=== PATIENT | female | born 1985 | race Caucasian/White ===

== ENCOUNTER 2016-12-27 10:26 | Emergency (ER) | payer OTHER ==
--- NOTE | 2016-12-27 10:40 | ED ---
Arrhythmia/Palpitations HPI - General Chief Complaint: Arrhythmia/Palpitations Stated Complaint: heart palpatations Source: patient Mode of arrival: ambulatory Limitations: no limitations - History of Present Illness Initial Comments: 31-year-old female with history of intermittent palpitations and Gettleman syndrome presents with palpitations beginning today she is presently 24 weeks she is 2 para 1 AB 0. She takes 8 potassiums per day. As well as magnesium supplementation. She has no social chest pain shortness breath dizziness she had a problems during her last which she cared 29 weeks with a live . She states the potassium requirement seemed to go up during her last . She has no headaches dizziness fever chills nausea vomiting. She's had some mild the uterine cramps over the last 2 weeks of for which she spoke to Dr. Jimenez. - Related Data Home Medications Medication Instructions Recorded Confirmed Vit No.124/Iron/FA 1 each PO DAILY 03/02/15 12/27/16 [ Vitamin Tablet] Magnesium Oxide [Mag-Ox] 1,600 meq PO BID 11/14/15 12/27/16 Potassium Chloride [Klor-Con 20] 80 meq PO BID 11/14/15 12/27/16 Allergies Allergy/AdvReac Type Severity Reaction Status Date / Time diphenhydramine HCl Allergy Throat Verified 10/17/16 19:11 [From Benadryl] Closes Review of Systems ROS Statement: Those systems with pertinent positive or pertinent negative responses have been documented in the HPI. ROS Other: All systems not noted in ROS Statement are negative. Constitutional: Denies: fever, chills ENT: Denies: ear pain Respiratory: Denies: cough Cardiovascular: Reports: palpitations. Denies: chest pain, dyspnea on exertion , edema Gastrointestinal: Denies: abdominal pain, nausea, vomiting Genitourinary: Denies: urgency, dysuria, frequency, hematuria Skin: Denies: rash Neurological: Denies: headache, weakness Psychiatric: Denies: anxiety, depression Hematological/Lymphatic: Denies: easy bleeding, easy bruising 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. OB history: This is her first and she has had care with me as well as being followed by M. She has had 2 courses of celestone. History of Any Multi-Drug Resistant Organisms: None Reported Past Surgical History: Appendectomy, Orthopedic Surgery, Tonsillectomy Additional Past Surgical History / Comment(s): Liposuction 2015, [place] teeth Past Anesthesia/Blood Transfusion Reactions: No Reported Reaction Past Psychological History: Anxiety, Depression, PTSD Smoking Status: Current every day smoker Past Alcohol Use History: None Reported Past Drug Use History: None Reported - Past Family History Mother Family Medical History: Fibromyalgia Additional Family Medical History / Comment(s): Fibromyalgia dioagnosed in 2006 General Exam Limitations: no limitations Head exam: Present: atraumatic Eye exam: Present: PERRL, EOMI ENT exam: Present: normal oropharynx, mucous membranes moist Respiratory exam: Present: normal lung sounds bilaterally Cardiovascular Exam: Present: regular rate, tachycardia, normal heart sounds GI/Abdominal exam: Present: soft, tenderness Neurological exam: Present: alert, CN II-XII intact Psychiatric exam: Present: normal affect, normal mood Skin exam: Present: warm, dry Course Vital Signs 12/27/16 10:28 Temperature 97 F L Pulse Rate 111 H Respiratory 18 Rate Blood Pressure 119/69 O2 Sat by Pulse 99 Oximetry Medical Decision Making - Medical Decision Making Patient has sinus tachycardia about 1 or 3significant arrhythmia, her potassium is 3.3 her magnesium is 1.2 she prefers not to have IV we'll give her an extra dose of her potassium magnesium no have her increase her potassium 80 mEq 3 times a day instead of twice a day and increase her magnesium to 800 mg extra third time a day. - Lab Data Result diagrams: 12/27/16 11:42 12/27/16 11:42 Lab Results 12/27/16 12/27/16 12/27/16 Range/Units 11:42 11:42 11:42 WBC 14.7 H (3.8-10.6) k/uL RBC 4.02 (3.80-5.40) m/uL Hgb 13.9 (11.4-16.0) gm/dL Hct 38.1 (34.0-46.0) % MCV 94.6 (80.0-100.0) fL MCH 34.6 (25.0-35.0) pg MCHC 36.6 (31.0-37.0) g/dL RDW 13.7 (11.5-15.5) % Plt Count 288 (150-450) k/uL Neutrophils % 76 % Lymphocytes % 16 % Monocytes % 4 % Eosinophils % 3 % Basophils % 1 % Neutrophils # 11.1 H (1.3-7.7) k/uL Lymphocytes # 2.4 (1.0-4.8) k/uL Monocytes # 0.6 (0-1.0) k/uL Eosinophils # 0.4 (0-0.7) k/uL Basophils # 0.1 (0-0.2) k/uL Sodium 140 (137-145) mmol/L Potassium 3.3 L (3.5-5.1) mmol/L Chloride 101 (98-107) mmol/L Carbon Dioxide 28 (22-30) mmol/L Anion Gap 11 mmol/L BUN 7 (7-17) mg/dL Creatinine 0.54 (0.52-1.04) mg/dL Est GFR (MDRD) Af Amer >60 (>60 ml/min/1.73 sqM) Est GFR (MDRD) Non-Af >60 (>60 ml/min/1.73 sqM) Glucose 100 H (74-99) mg/dL Calcium 9.6 (8.4-10.2) mg/dL Magnesium 1.2 L (1.6-2.3) mg/dL Total Bilirubin 0.4 (0.2-1.3) mg/dL AST 18 (14-36) U/L ALT 24 (9-52) U/L Alkaline Phosphatase 64 (38-126) U/L Total Creatine Kinase 37 (30-135) U/L Total Protein 7.4 (6.3-8.2) g/dL Albumin 4.0 (3.5-5.0) g/dL Urine Color Urine Appearance (Clear) Urine pH (5.0-8.0) Ur Specific [place] (1.001-1.035) Urine Protein (Negative) Urine Glucose (UA) (Negative) Urine Ketones (Negative) Urine Blood (Negative) Urine Nitrate (Negative) Urine Bilirubin (Negative) Urine Urobilinogen (<2.0) mg/dL Ur Leukocyte Esterase (Negative) 12/27/16 Range/Units 11:42 WBC (3.8-10.6) k/uL RBC (3.80-5.40) m/uL Hgb (11.4-16.0) gm/dL Hct (34.0-46.0) % MCV (80.0-100.0) fL MCH (25.0-35.0) pg MCHC (31.0-37.0) g/dL RDW (11.5-15.5) % Plt Count (150-450) k/uL Neutrophils % % Lymphocytes % % Monocytes % % Eosinophils % % Basophils % % Neutrophils # (1.3-7.7) k/uL Lymphocytes # (1.0-4.8) k/uL Monocytes # (0-1.0) k/uL Eosinophils # (0-0.7) k/uL Basophils # (0-0.2) k/uL Sodium (137-145) mmol/L Potassium (3.5-5.1) mmol/L Chloride (98-107) mmol/L Carbon Dioxide (22-30) mmol/L Anion Gap mmol/L BUN (7-17) mg/dL Creatinine (0.52-1.04) mg/dL Est GFR (MDRD) Af Amer (>60 ml/min/1.73 sqM) Est GFR (MDRD) Non-Af (>60 ml/min/1.73 sqM) Glucose (74-99) mg/dL Calcium (8.4-10.2) mg/dL Magnesium (1.6-2.3) mg/dL Total Bilirubin (0.2-1.3) mg/dL AST (14-36) U/L ALT (9-52) U/L Alkaline Phosphatase (38-126) U/L Total Creatine Kinase (30-135) U/L Total Protein (6.3-8.2) g/dL Albumin (3.5-5.0) g/dL Urine Color Yellow Urine Appearance Clear (Clear) Urine pH 8.0 (5.0-8.0) Ur Specific [place] 1.018 (1.001-1.035) Urine Protein Negative (Negative) Urine Glucose (UA) Negative (Negative) Urine Ketones Negative (Negative) Urine Blood Negative (Negative) Urine Nitrate Negative (Negative) Urine Bilirubin Negative (Negative) Urine Urobilinogen <2.0 (<2.0) mg/dL Ur Leukocyte Esterase Negative (Negative) - EKG Data -: EKG Interpreted by Me 12/27/16 10:39 EKG 12/27/2016 at 1035 ventricular rate 112 bpm, IL interval 90 ms, QRS duration 74 ms, QT interval 326 ms, sinus tachycardia with short IL T-wave abnormality, Disposition Clinical Impression: Hypokalemia, Hypomagnesemia, Palpitations, Gitelman disease Disposition: HOME SELF-CARE Condition: Good Instructions: Palpitations (ED) Additional Instructions: Increase potassium chloride to 80 mEq 3 times a day, take an additional 800 mg of magnesium daily as a third dose. Time of Disposition: 12:43
[2016-12-27 11:55] LABS: Basophils # (A) 0.1 k/uL (0-0.2); Basophils % (A) 1 %; CH 34.8; CHCM 36.9; Eosinophils # (A) 0.4 k/uL (0-0.7); Eosinophils % (A) 3 %; HCT 38.1 % (34.0-46.0); HDW 3.01; HGB 13.9 gm/dL (11.4-16.0); Luc # (Auto) 0.21; Luc % (Auto) 1; Lymphocytes # (A) 2.4 k/uL (1.0-4.8); Lymphocytes % (A) 16 %; MCH 34.6 pg (25.0-35.0); MCHC 36.6 g/dL (31.0-37.0); MCV 94.6 fL (80.0-100.0); Mean Platelet Volume 7.4; Monocytes # (A) 0.6 k/uL (0-1.0); Monocytes % (A) 4 %; Neutrophils # (A) 11.1 k/uL (1.3-7.7); Neutrophils % (A) 76 %; RBC 4.02 m/uL (3.80-5.40); RDW 13.7 % (11.5-15.5); WBC 14.7 k/uL (3.8-10.6); WBC (Perox) 14.24
[2016-12-27 12:11] LABS: ALT 24 U/L (9-52); AST 18 U/L (14-36); Alkaline Phosphatase 64 U/L (38-126); Anion Gap 11 mmol/L; Blood Urea Nitrogen 7 mg/dL (7-17); Calcium 9.6 mg/dL (8.4-10.2); Carbon Dioxide 28 mmol/L (22-30); Chloride 101 mmol/L (98-107); Glucose 100 mg/dL (74-99); Magnesium 1.2 mg/dL (1.6-2.3); Non-African American GFR(MDRD) >60 (>60 ml/min/1.73 sqM); Potassium 3.3 mmol/L (3.5-5.1); Sodium 140 mmol/L (137-145); Total Bilirubin 0.4 mg/dL (0.2-1.3); Total Protein 7.4 g/dL (6.3-8.2)
[2016-12-27 12:16] LABS: Appearance,Urine Clear (Clear); Bilirubin,Urine Negative (Negative); Glucose,Urine (UA) Negative (Negative); Ketones,Urine Negative (Negative); Leukocyte Esterase,Urine Negative (Negative); Nitrite,Urine Negative (Negative); Protein,Urine Negative (Negative); Specific Gravity,Urine 1.018 (1.001-1.035); UA Billing (MACRO vs. MICRO) CHEM; Urobilinogen,Urine <2.0 mg/dL (<2.0)
[2016-12-27 12:24] LABS: Creatine Kinase 37 U/L (30-135)
[2016-12-27 12:37] LABS: Creatine Kinase MB 0.5 ng/mL (0.0-2.4); Troponin I <0.012 ng/mL (0.000-0.034)
[2016-12-27] MEDS ORDERED: POTASSIUM CHLORIDE ER 20 MEQ TAB.ER PO STA (12:38)
[2016-12-27] MEDS ORDERED: MAGNESIUM OXIDE 400 MG TAB PO STA (12:38)
[2016-12-27 13:04] VITALS: BP 113/70; PULSE 104; RESP 16; TEMP 98.3
== END 2016-12-27 13:10 | disposition home or self-care (01) ==
LOC: EC 10:26
DX: O26.892 Other specified pregnancy related conditions, second trimester (principal); O99.332 Smoking (tobacco) complicating pregnancy, second trimester; R00.2 Palpitations; E83.42 Hypomagnesemia; E87.6 Hypokalemia; R00.0 Tachycardia, unspecified; I49.9 Cardiac arrhythmia, unspecified; F17.200 Nicotine dependence, unspecified, uncomplicated; Z3A.24 24 weeks gestation of pregnancy; Z88.8 Allergy status to other drugs, medicaments and biological substances; Z79.899 Other long term (current) drug therapy
CPT/HCPCS: 36415; 80053; 81003; 82550; 82553; 83735; 84443; 84484; 85025; 93005; 99285

== ENCOUNTER → 2017-01-01 | Outpatient (CLI) | payer OTHER ==
[2017-01-01 07:59] LABS: CH 34.7; CHCM 35.6; HCT 38.2 % (34.0-46.0); HDW 2.99; HGB 13.2 gm/dL (11.4-16.0); MCH 33.8 pg (25.0-35.0); MCHC 34.5 g/dL (31.0-37.0); MCV 97.8 fL (80.0-100.0); Mean Platelet Volume 6.6; RBC 3.91 m/uL (3.80-5.40); RDW 13.8 % (11.5-15.5); WBC 15.8 k/uL (3.8-10.6)
== END | disposition home or self-care (01) ==
LOC: LABWHC1 06:46
PROVIDERS: ATTEND Obstetrics & Gynecology
DX: Z34.92 Encounter for supervision of normal pregnancy, unspecified, second trimester (principal); Z3A.00 Weeks of gestation of pregnancy not specified
CPT/HCPCS: 36415; 82950; 85027

== ENCOUNTER → 2017-01-12 | Outpatient (CLI) | payer OTHER ==
[2017-01-12 11:50] LABS: Glucose 3 Hour, Gest 130 mg/dL
== END | disposition home or self-care (01) ==
LOC: LABWHC1 07:48
PROVIDERS: ATTEND Obstetrics & Gynecology
DX: O24.419 Gestational diabetes mellitus in pregnancy, unspecified control (principal); Z3A.00 Weeks of gestation of pregnancy not specified
CPT/HCPCS: 36415; 82951; 82952

== ENCOUNTER 2017-04-01 14:00 | Outpatient (CLI) | payer OTHER ==
[2017-04-01 14:37] VITALS: BP 110/65; PULSE 109; RESP 16; TEMP 96.7
== END 2017-04-01 14:48 | disposition home or self-care (01) ==
LOC: FBPOP 14:00
PROVIDERS: ATTEND Obstetrics & Gynecology
DX: O26.93 Pregnancy related conditions, unspecified, third trimester (principal); Z3A.37 37 weeks gestation of pregnancy
CPT/HCPCS: 59025; 99213

== ENCOUNTER 2017-04-09 05:59 | Inpatient (IN) | payer OTHER ==
[2017-04-09] MEDS ORDERED: ceFAZolin 2 GM in SODIUM CHLORIDE 0.9% 100 ML IVPB ONE (06:17)
[2017-04-09] MEDS ORDERED: CITRIC ACID-SODIUM CITRATE 15 ML CUP PO ONE (06:17)
[2017-04-09] MEDS ORDERED: LACTATED RINGERS 1,000 ML IV ONE (06:17)
[2017-04-09 06:44] LABS: Basophils % (A) 0 %; CH 35.6; CHCM 35.6; Eosinophils # (A) 0.1 k/uL (0-0.7); Eosinophils % (A) 1 %; HCT 39.4 % (34.0-46.0); HDW 2.66; HGB 13.3 gm/dL (11.4-16.0); Luc # (Auto) 0.22; Luc % (Auto) 2; Lymphocytes # (A) 2.8 k/uL (1.0-4.8); Lymphocytes % (A) 23 %; MCH 34.1 pg (25.0-35.0); MCHC 33.9 g/dL (31.0-37.0); MCV 100.6 fL (80.0-100.0); Macrocytosis Slight; Mean Platelet Volume 7.7; Monocytes # (A) 0.7 k/uL (0-1.0); Monocytes % (A) 6 %; Neutrophils # (A) 8.4 k/uL (1.3-7.7); Neutrophils % (A) 68 %; Potassium 3.2 mmol/L (3.5-5.1); RBC 3.91 m/uL (3.80-5.40); RDW 14.2 % (11.5-15.5); WBC 12.3 k/uL (3.8-10.6); WBC (Perox) 12.33
--- NOTE | 2017-04-09 07:23 | P.HPOB ---
History of Present Illness H&P Date: 04/09/17 Chief Complaint: repeat 32 year old presents at 39 weeks 2 day for repeat low transverse with tubal ligation. heart tones are 130-135 with moderate variability and reactive. She is darin irregularly. Review of Systems All systems: negative Constitutional: Denies chills, Denies fever Eyes: denies blurred vision, denies pain Ears, nose, mouth and throat: Denies headache, Denies sore throat Cardiovascular: Denies chest pain, Denies shortness of breath Respiratory: Denies cough Gastrointestinal: Denies abdominal pain, Denies diarrhea, Denies nausea, Denies vomiting Genitourinary: Denies dysuria, Denies hematuria Musculoskeletal: Denies myalgias Integumentary: Denies pruritus, Denies rash Neurological: Denies numbness, Denies weakness Psychiatric: Denies anxiety, Denies depression Endocrine: Denies fatigue, Denies weight change 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. OB history: First was a at 29 weeks 5 days after she went into labor. This is her second and she has had care with me since the first trimester. She has had to have progesterone injections from 16 weeks to 36 weeks and did see MFM throughout. History of Any Multi-Drug Resistant Organisms: None Reported Past Surgical History: Appendectomy, Section, Orthopedic Surgery, Tonsillectomy Additional Past Surgical History / Comment(s): Liposuction 2015, [place] teeth Past Anesthesia/Blood Transfusion Reactions: No Reported Reaction Past Psychological History: Anxiety, Depression, PTSD Smoking Status: Current every day smoker Past Alcohol Use History: None Reported Additional Past Alcohol Use History / Comment(s): TRYING TO QUIT-HAS BEEN SMOKING SINE AGE 22 Past Drug Use History: None Reported - Past Family History Mother Family Medical History: Fibromyalgia Additional Family Medical History / Comment(s): Fibromyalgia dioagnosed in 2006 Medications and Allergies Home Medications Medication Instructions Recorded Confirmed Type Vit No.124/Iron/Folic 1 tab PO DAILY 03/02/15 04/08/17 History [ Vitamin Tablet] Magnesium Oxide [Mag-Ox] 1,600 meq PO BID 11/14/15 04/08/17 History Potassium Chloride [Klor-Con 20] 80 meq PO BID 11/14/15 04/08/17 History Allergies Allergy/AdvReac Type Severity Reaction Status Date / Time diphenhydramine HCl Allergy Rash/Hives Verified 04/08/17 14:21 [From Benadryl] Exam Osteopathic Statement: *. No significant issues noted on an osteopathic structural exam other than those noted in the History and Physical/Consult. HEart: RRR Lungs: CTAB Abdomen: soft, nontender Extremeties: neg jesse's Results Result Diagrams: 04/09/17 06:25 04/09/17 06:25 Abnormal Lab Results - Last 24 Hours (Table) 04/09/17 04/09/17 Range/Units 06:25 06:25 WBC 12.3 H (3.8-10.6) k/uL MCV 100.6 H (80.0-100.0) fL Neutrophils # 8.4 H (1.3-7.7) k/uL Potassium 3.2 L (3.5-5.1) mmol/L Assessment and Plan (1) Previous section Status: Acute (2) Family planning Status: Acute Plan: 1. repeat low transverse with tubal ligation
[2017-04-09 07:39] VITALS: BMI 74.2
[2017-04-09] MEDS ORDERED: PHENYLEPHRINE-0.9% NACL SYG 1 MG/10 ML SYRINGE ONE (08:00)
[2017-04-09] MEDS ORDERED: MORPHINE SULFATE (PF) 0.3 MG/0.3 ML SYR ONE (08:00)
[2017-04-09] MEDS ORDERED: OXYTOCIN 10 UNIT/ML 1 ML VIAL ONE (08:00)
[2017-04-09] MEDS ORDERED: NALBUPHINE 10 MG/ML AMPUL ONE (08:00)
[2017-04-09] MEDS ORDERED: ONDANSETRON 4 MG/2 ML VIAL ONE (08:00)
[2017-04-09] MEDS ORDERED: ONDANSETRON 4 MG/2 ML VIAL IVP PRN (08:39)
[2017-04-09] MEDS ORDERED: ZOLPIDEM 5 MG TAB PO PRN (08:39)
[2017-04-09] MEDS ORDERED: Acetaminophen-Codeine 300-30mg TAB PO PRN ×2 (08:39)
[2017-04-09] MEDS ORDERED: diphenhydrAMINE 25 MG CAP PO PRN (08:39)
[2017-04-09] MEDS ORDERED: IBUPROFEN 600 MG TAB PO PRN (08:39)
[2017-04-09] MEDS ORDERED: METOCLOPRAMIDE 5 MG/ML 2 ML VIAL IVP PRN (08:39)
[2017-04-09] MEDS ORDERED: ACETAMINOPHEN TAB 325 MG TAB PO PRN (08:39)
[2017-04-09] MEDS ORDERED: LANOLIN CREAM 5 GM TUBE TOPICAL PRN (08:39)
[2017-04-09] MEDS ORDERED: SIMETHICONE 80 MG CHEWABLE PO PRN (08:39)
[2017-04-09] MEDS ORDERED: NALOXONE 0.4 MG/ML 1 ML VIAL IV PRN (08:39)
[2017-04-09] MEDS ORDERED: OXYTOCIN 20 UNITS/1000 ML NS 1,000 ML IV SCH (08:45)
--- NOTE | 2017-04-09 08:45 | P.OP ---
Date of Procedure: 04/09/17 Preoperative Diagnosis: 1. at 39 weeks and 2 days 2. Previous section 3. Family planning Postoperative Diagnosis: 1. at 39 weeks and 2 days 2. Previous section 3. Family planning Procedure(s) Performed: Repeat low transverse with tubal ligation Implants: Anesthesia: spinal Surgeon: Mary Jimenez Bottom Presser #1: Maikel Harden Estimated Blood Loss (ml): 500 IV fluids (ml): 800 Urine output (ml): 150 Pathology: other (Placenta) Condition: stable Disposition: floor Indications for Procedure: Operative Findings: Viable male, Apgars 8, 9, weight 8 lbs. 9 oz. Normal uterus tubes and ovaries. Omental adhesions to the anterior abdominal wall. Description of Procedure: Patient was taken to the operating room where spinal anesthesia was found be adequate. She was prepped and draped in normal sterile fashion in dorsal supine position with a leftward tilt. Pfannenstiel skin incision was made the scalpel and carried through to the underlying layer of fascia with the scalpel. Fascia was incised in midline and carried bilaterally with the Billingsley scissors. The superior aspect of the fascial incision was grasped with Schaller clamps elevated and the underlying rectus muscles dissected off with the Billingsley's. Attention was then turned to inferior aspect of same incision which in a similar fashion was grasped tented up and the underlying rectus muscles dissected off with the Billingsley's. The rectus muscles were the midline and the peritoneum was identified tented up and entered sharply with the scalpel. The incision was extended superiorly and inferiorly with good visualization of the bladder. The bladder blade was inserted and the vesicouterine peritoneum was incised the Metzenbaums then carried bilaterally and bladder flap created digitally. A low transverse incision was then made on the uterus with the scalpel. This was carried bilaterally and digital manner. Infant's head delivered atraumatically, nose and mouth bulb suctioned, cord clamped and cut, handed off to waiting nurses. Apgars 8,9, weight 8 lbs. 9 oz. Placenta delivered manually, intact with three-vessel cord. The uterus is exteriorized and cleared of all clots and debris. The uterine incision was closed with 0 Vicryl in a running locked fashion. Second layer of the same sutures used in imbricating fashion to obtain excellent hemostasis. Bladder flap was then reapproximated using 2-0 Vicryl in a running fashion. Both ovaries and tubes appeared normal. The right fallopian tube was grasped with a hemostat and a window was made in the mesosalpinx. The right fallopian tube was doubly ligated and a section was removed. The pedicles were then cauterized with the Bovie. The left fallopian tube was grasped with a hemostat and then a window was made in the mesosalpinx with the Bovie. The left fallopian tube was doubly ligated and a section was removed. The pedicles were then cauterized with the Bovie. The uterus was placed back into the abdomen. The peritoneum was reapproximated using 2-0 Vicryl in a running fashion. Of note the omentum was attached to the anterior abdominal wall along the left side of the peritoneum. The muscles were reapproximated using 2-0 Vicryl in interrupted fashion. The fascia was reapproximated using 0 Vicryl in a running fashion. The subcutaneous tissues closed with 3-0 Vicryl running fashion. The skin was closed jude. Patient tolerated the procedure well, sponge and instrument counts were correct times 2 and she was taken to the recovery room in stable condition.
[2017-04-09] MEDS ORDERED: MAGNESIUM OXIDE 400 MG TAB PO SCH (09:00)
[2017-04-09] MEDS: KETOROLAC 30 MG/ML 1 ML VIAL IVP PRN ×2 (13:53→20:18)
[2017-04-09] MEDS: NALBUPHINE 10 MG/ML AMPUL IV SCH ×2 (17:33→21:50)
[2017-04-09] MEDS ORDERED: NALBUPHINE 10 MG/ML AMPUL IM SCH (18:00)
[2017-04-09] MEDS: MAGNESIUM OXIDE 400 MG TAB PO SCH ×2 (19:21→20:23)
[2017-04-09] MEDS: POTASSIUM CHLORIDE ER 20 MEQ TAB.ER PO SCH ×2 (19:21→20:22)
[2017-04-09] MEDS: SENNOSIDES-DOCUSATE SODIUM 1 EACH TAB PO SCH (20:17)
[2017-04-09] MEDS ORDERED: MEASLES-MUMPS-RUBELLA VACC/PF 12,500 UNIT/0.5 ML VIAL SQ ONE (20:43)
[2017-04-09] MEDS: LACTATED RINGERS 1,000 ML IV SCH (21:46)
[2017-04-10] MEDS: KETOROLAC 30 MG/ML 1 ML VIAL IVP PRN ×3 (03:23→20:44)
[2017-04-10] MEDS: LACTATED RINGERS 1,000 ML IV SCH (03:40)
[2017-04-10] MEDS: NALBUPHINE 10 MG/ML AMPUL IV SCH (03:50)
[2017-04-10 08:30] LABS: Basophils % (A) 0 %; CH 35.3; Eosinophils # (A) 0.2 k/uL (0-0.7); Eosinophils % (A) 1 %; HCT 29.5 % (34.0-46.0); HDW 2.72; HGB 10.5 gm/dL (11.4-16.0); Luc # (Auto) 0.24; Luc % (Auto) 2; Lymphocytes # (A) 2.2 k/uL (1.0-4.8); Lymphocytes % (A) 20 %; MCH 35.1 pg (25.0-35.0); MCHC 35.5 g/dL (31.0-37.0); MCV 98.7 fL (80.0-100.0); Mean Platelet Volume 7.4; Monocytes # (A) 0.7 k/uL (0-1.0); Monocytes % (A) 6 %; Neutrophils # (A) 7.6 k/uL (1.3-7.7); Neutrophils % (A) 70 %; RBC 2.98 m/uL (3.80-5.40); RDW 13.7 % (11.5-15.5); WBC (Perox) 11.31
--- NOTE | 2017-04-10 09:12 | P.PNOBGPC ---
Subjective - Subjective Principal diagnosis: S/P RLTCS with TL POD #1 Interval history: Patient seen and examined. Denies N/V, F/C, CP, SOB, calf pain. Patient reports: Reports appetite normal, Reports voiding normally, Reports pain well controlled, Reports ambulating normally Edmondson: doing well Objective - Vital Signs Latest vital signs: Vital Signs Temp Pulse Resp BP Pulse Ox 04/10/17 04:00 98.5 F 81 16 83/43 98 04/10/17 00:00 97.3 F L 85 16 90/62 04/09/17 20:00 97.4 F L 100 16 106/61 96 04/09/17 16:00 98.2 F 90 16 102/62 04/09/17 11:59 97.8 F 118 H 16 104/57 04/09/17 10:50 82 16 105/57 04/09/17 10:20 85 16 93/51 04/09/17 09:49 97.0 F L 83 18 95/62 04/09/17 09:35 96 18 97/62 04/09/17 09:20 96 18 95/56 Intake and Output 04/09/17 04/10/17 04/10/17 22:59 06:59 14:59 Output Total 350 400 Balance -350 -400 Output: Urine 350 400 Other: # Voids 1 1 - Exam Lungs: bilateral: normal Chest: Normal S1, Normal S2 Extremities: Present: normal Abdomen: Present: normal appearance, soft. Absent: distention, tenderness Incision: Present: normal, dry, intact Uterus: Present: normal, firm - Labs Labs: Abnormal Lab Results - Last 24 Hours (Table) 04/10/17 Range/Units 07:55 WBC 11.0 H (3.8-10.6) k/uL RBC 2.98 L (3.80-5.40) m/uL Hgb 10.5 L (11.4-16.0) gm/dL Hct 29.5 L (34.0-46.0) % MCH 35.1 H (25.0-35.0) pg Assessment and Plan (1) Previous section Current Visit: Yes Status: Resolved Code(s): Z98.891 - HISTORY OF UTERINE SCAR FROM PREVIOUS SURGERY SNOMED Code(s): 445550945 (2) Family planning Current Visit: Yes Status: Resolved Code(s): Z30.09 - ENCOUNTER FOR OTH GENERAL CNSL AND ADVICE ON CONTRACEPTION SNOMED Code(s): 67898979 (3) Status post repeat low transverse section Current Visit: Yes Status: Acute Code(s): Z98.891 - HISTORY OF UTERINE SCAR FROM PREVIOUS SURGERY SNOMED Code(s): 438427726 (4) Status post tubal ligation at time of delivery, current hosp Narrative/Plan: 1. cont po care 2. increase ambulation Current Visit: Yes Status: Acute Code(s): O80 - ENCOUNTER FOR FULL-TERM UNCOMPLICATED DELIVERY; Z30.2 - ENCOUNTER FOR STERILIZATION SNOMED Code(s): 904390116
[2017-04-10] MEDS: MAGNESIUM OXIDE 400 MG TAB PO SCH ×2 (10:13→20:46)
[2017-04-10] MEDS: POTASSIUM CHLORIDE ER 20 MEQ TAB.ER PO SCH ×2 (10:15→20:46)
[2017-04-10] MEDS: SENNOSIDES-DOCUSATE SODIUM 1 EACH TAB PO SCH (14:46)
--- NOTE | 2017-04-10 15:41 | P.PN ---
Progress Note - Text Date:04/10 Time:153 Patient is status post . Patient seen this morning with VAS score of 2. c/o of pruritus, no c/o nausea/vomiting, comfortable and doing well.
[2017-04-11] MEDS: NALBUPHINE 10 MG/ML AMPUL IV SCH ×2 (03:32→05:02)
[2017-04-11] MEDS: LACTATED RINGERS 1,000 ML IV SCH ×2 (03:32→03:33)
[2017-04-11] MEDS: SENNOSIDES-DOCUSATE SODIUM 1 EACH TAB PO SCH ×2 (03:33→14:21)
[2017-04-11] MEDS: KETOROLAC 30 MG/ML 1 ML VIAL IVP PRN (05:40)
--- NOTE | 2017-04-11 08:24 | P.DS ---
Providers Date of admission: 04/09/17 05:59 Expected date of discharge: 04/11/17 Attending physician: Mary Jimenez Primary care physician: Stated None Hospital Course: Kelley is seen and evaluated postop day 2. She is ambulating, voiding and she is tolerating her diet. She is passing flatus. Vital signs stable and afebrile. Heart regular, lungs clear, extremities without pain. Abdomen soft uterus is firm incision is clean dry and intact. Assessment postop day 2. Plan discharged home follow up with Dr. Jimenez in [address] Jimenez request [place] to be removed prior to discharge will plan to move forward with this. At this time her incision otherwise looks good. Options for pain medicine have also already been provided. Assessment postop day 2. Plan discharged home. Patient Condition at Discharge: Good Plan - Discharge Summary New Discharge Prescriptions: New Acetaminophen-Codeine 300-30mg [Tylenol w/codeine #3] 2 each PO Q4HR PRN #30 tab PRN Reason: Moderate To Severe Pain Ibuprofen [Motrin] 600 mg PO Q6HR PRN #30 tab PRN Reason: Mild Pain Or Fever >= 100.5 No Action Vit No.124/Iron/Folic [ Vitamin Tablet] 1 tab PO DAILY Potassium Chloride [Klor-Con 20] 80 meq PO BID Magnesium Oxide [Mag-Ox] 1,600 meq PO BID Discharge Medication List Vit No.124/Iron/Folic [ Vitamin Tablet] 1 tab PO DAILY [History] Magnesium Oxide [Mag-Ox] 1,600 meq PO BID 11/14/15 [History] Potassium Chloride [Klor-Con 20] 80 meq PO BID 11/14/15 [History] Acetaminophen-Codeine 300-30mg [Tylenol w/codeine #3] 2 each PO Q4HR PRN #30 tab 04/10/17 [Rx] Ibuprofen [Motrin] 600 mg PO Q6HR PRN #30 tab 04/10/17 [Rx] Follow up Appointment(s)/Referral(s): Mary Jimenez DO [Doctor of Osteopathic Medicine] - 1 Week Discharge Disposition: HOME SELF-CARE
[2017-04-11] MEDS: MAGNESIUM OXIDE 400 MG TAB PO SCH (10:00)
[2017-04-11] MEDS: POTASSIUM CHLORIDE ER 20 MEQ TAB.ER PO SCH (10:00)
[2017-04-11 11:04] VITALS: BP 116/72; PULSE 89; RESP 18; TEMP 98.4
== END 2017-04-11 11:50 | disposition home or self-care (01) | DRG 766 ==
LOC: 4FBP 05:59
PROVIDERS: ADMIT Obstetrics & Gynecology; ATTEND Obstetrics & Gynecology
PROC: 0UB70ZZ Excision of Bilateral Fallopian Tubes, Open Approach (ICD-10-PCS; principal; 2017-04-09 08:00)
PROC: 10D00Z1 Extraction of Products of Conception, Low, Open Approach (ICD-10-PCS; principal; 2017-04-09 08:00)
DX: O34.211 Maternal care for low transverse scar from previous cesarean delivery (principal); F17.200 Nicotine dependence, unspecified, uncomplicated; Z37.0 Single live birth; O99.334 Smoking (tobacco) complicating childbirth; Z3A.39 39 weeks gestation of pregnancy; Z30.2 Encounter for sterilization
CPT/HCPCS: 80051; 85025; 86850; 86900; 86901; 88302; 88307; 90707

== ENCOUNTER 2018-10-16 18:40 | Emergency (ER) | payer OTHER ==
[2018-10-16 18:49] VITALS: RESP 16; TEMP 97
[2018-10-16] MEDS ORDERED: DICYCLOMINE 10 MG/ML 2 ML AMP IM STA (19:23)
[2018-10-16] MEDS ORDERED: ONDANSETRON 4 MG/2 ML VIAL IVP STA (19:23)
[2018-10-16] MEDS ORDERED: SODIUM CHLORIDE 0.9% 1,000 ML IV STA (19:23)
--- NOTE | 2018-10-16 19:26 | ED ---
Nausea/Vomiting/Diarrhea HPI - General Chief complaint: Nausea/Vomiting/Diarrhea Stated complaint: near syncope Time Seen by Provider: 10/16/18 18:50 Source: patient, EMS Mode of arrival: EMS Limitations: no limitations - History of Present Illness Initial comments: 33-year-old female patient presents to the emergency department today for evaluation of vomiting, diarrhea, and near syncopal episode. Patient states that symptoms started suddenly just prior to calling EMS. Patient states she is in the bathroom vomiting, had a bowel movement, and felt like she is given a pass out. Patient states that her hands cramped up bilaterally and she felt "out of it". States that her mother called EMS and she was brought here for evaluation. Patient denies any recent travel or sick contacts. States that she is vaccinated for hepatitis A. She denies any fevers or chills with this. States she is having abdominal cramping and the urge to have a bowel movement. She denies any hematemesis, hematochezia, or melena. Patient did have an abdominoplasty surgery approximate 5 weeks ago, states that recovery has been going very well. He says she has been somewhat constipated with the surgery. Patient denies any recent rash, shortness breath, chest pain, back pain, numbness, tingling, dizziness, weakness, hematuria, dysuria, urinary urgency, urinary frequency, headache, visual changes, or any other complaints. - Related Data Home Medications Medication Instructions Recorded Confirmed Magnesium Oxide [Mag-Ox] 1,600 meq PO BID 11/14/15 10/16/18 Potassium Chloride [Klor-Con 20] 80 meq PO BID 11/14/15 10/16/18 Acetaminophen [Tylenol Extra 500 mg PO BID PRN 10/05/17 10/16/18 Strength] Ibuprofen [Motrin] 800 mg PO DAILY 10/16/18 10/16/18 Previous Rx's Medication Instructions Recorded Ondansetron Odt [Zofran Odt] 4 mg PO Q8HR PRN #10 tab 10/05/17 Ondansetron [Zofran ODT] 4 mg PO Q8HR PRN #10 tab 10/16/18 Allergies Allergy/AdvReac Type Severity Reaction Status Date / Time diphenhydramine HCl Allergy Rash/Hives Verified 10/16/18 19:10 [From Benadryl] Review of Systems ROS Statement: Those systems with pertinent positive or pertinent negative responses have been documented in the HPI. ROS Other: All systems not noted in ROS Statement are negative. 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 History of Any Multi-Drug Resistant Organisms: None Reported Past Surgical History: Appendectomy, Section, Orthopedic Surgery, Tonsillectomy Additional Past Surgical History / Comment(s): Liposuction 2015, [place] teeth, abdominal plasty Past Anesthesia/Blood Transfusion Reactions: No Reported Reaction Past Psychological History: Anxiety, Depression, PTSD Smoking Status: Current every day smoker Past Alcohol Use History: None Reported Past Drug Use History: None Reported - Past Family History Mother Family Medical History: Fibromyalgia Additional Family Medical History / Comment(s): Fibromyalgia dioagnosed in 2006 General Exam Limitations: no limitations General appearance: alert, in no apparent distress, other (This is a well- developed, well-nourished adult female patient in no acute distress. Vital signs upon presentation are temperature 97.0F, pulse 88, respirations 16, blood pressure 111/79, pulse ox 97% on room air.) Eye exam: Present: normal appearance, PERRL, EOMI. Absent: scleral icterus, conjunctival injection, periorbital swelling ENT exam: Present: normal exam, normal oropharynx, mucous membranes moist Respiratory exam: Present: normal lung sounds bilaterally. Absent: respiratory distress, wheezes, rales, rhonchi, stridor Cardiovascular Exam: Present: regular rate, normal rhythm, normal heart sounds. Absent: systolic murmur, diastolic murmur, rubs, gallop, clicks GI/Abdominal exam: Present: soft, tenderness (Mild lower abdominal tenderness, mostly incisional), normal bowel sounds. Absent: distended, guarding, rebound, rigid Neurological exam: Present: alert, oriented X3, CN II-XII intact Psychiatric exam: Present: normal affect, normal mood Skin exam: Present: warm, dry, intact, normal color. Absent: rash Course Vital Signs 10/16/18 10/16/18 18:43 21:48 Temperature 97 F L Pulse Rate 88 90 Respiratory 16 16 Rate Blood Pressure 111/79 119/78 O2 Sat by Pulse 97 99 Oximetry Medical Decision Making - Medical Decision Making 33-year-old female patient with past medical history significant for Gitelman's syndrome presents to the emergency department for abrupt onset vomiting, diarrhea, near syncope. Physical examination is relatively unremarkable. Abdomen soft and nontender. She is neurologically intact with no focal deficits. Labs reviewed and did reveal potassium at 2.9, we did replace this with 60 mEq by mouth. After receiving IV fluids and nausea medication, patient does report feeling much better. Patient symptoms are consistent with a vasovagal episode and gastroenteritis. She'll be discharged home at this time with [facility] for symptom control. She is instructed to follow-up with her primary care physician for recheck in 1-2 days. Return parameters discussed in detail. She verbalizes understanding and agree with this plan. - Lab Data Result diagrams: 10/16/18 19:45 10/16/18 19:45 Lab Results 10/16/18 10/16/18 10/16/18 Range/Units 19:45 19:45 20:30 WBC 11.1 H (3.8-10.6) k/uL RBC 4.25 (3.80-5.40) m/uL Hgb 13.1 (11.4-16.0) gm/dL Hct 39.3 (34.0-46.0) % MCV 92.6 (80.0-100.0) fL MCH 30.8 (25.0-35.0) pg MCHC 33.3 (31.0-37.0) g/dL RDW 12.4 (11.5-15.5) % Plt Count 292 (150-450) k/uL Neutrophils % 73 % Lymphocytes % 20 % Monocytes % 5 % Eosinophils % 2 % Basophils % 0 % Neutrophils # 8.1 H (1.3-7.7) k/uL Lymphocytes # 2.2 (1.0-4.8) k/uL Monocytes # 0.6 (0-1.0) k/uL Eosinophils # 0.2 (0-0.7) k/uL Basophils # 0.0 (0-0.2) k/uL Sodium 139 (137-145) mmol/L Potassium 2.9 L (3.5-5.1) mmol/L Chloride 103 (98-107) mmol/L Carbon Dioxide 28 (22-30) mmol/L Anion Gap 8 mmol/L BUN 14 (7-17) mg/dL Creatinine 0.83 (0.52-1.04) mg/dL Est GFR (CKD-EPI)AfAm >90 (>60 ml/min/1.73 sqM) Est GFR (CKD-EPI)NonAf >90 (>60 ml/min/1.73 sqM) Glucose 104 H (74-99) mg/dL Calcium 8.8 (8.4-10.2) mg/dL Total Bilirubin 0.3 (0.2-1.3) mg/dL AST 24 (14-36) U/L ALT 37 (9-52) U/L Alkaline Phosphatase 51 (38-126) U/L Total Protein 7.3 (6.3-8.2) g/dL Albumin 4.2 (3.5-5.0) g/dL Amylase 49 (30-110) U/L Lipase 63 (23-300) U/L Urine Color Yellow Urine Appearance Clear (Clear) Urine pH 8.0 (5.0-8.0) Ur Specific [place] 1.017 (1.001-1.035) Urine Protein Negative (Negative) Urine Glucose (UA) Negative (Negative) Urine Ketones Negative (Negative) Urine Blood Small H (Negative) Urine Nitrite Negative (Negative) Urine Bilirubin Negative (Negative) Urine Urobilinogen <2.0 (<2.0) mg/dL Ur Leukocyte Esterase Negative (Negative) Urine RBC 6 H (0-5) /hpf Urine WBC 1 (0-5) /hpf Ur Squamous Epith Cells <1 (0-4) /hpf Urine Mucus Rare H (None) /hpf - Radiology Data Radiology results: report reviewed, image reviewed KUB x-ray was obtained. Report was reviewed in its entirety. Impression by Dr. Christian shows overall nonobstructive bowel gas pattern. Disposition Clinical Impression: Vasovagal episode, Gastroenteritis, Hypokalemia Disposition: HOME SELF-CARE Condition: Good Instructions: Hypokalemia (ED), Gastroenteritis (ED) Additional Instructions: Increase fluids. Take medications as directed. Have potassium rechecked by her primary care physician over the next 1-2 days. Return immediately for any new, worsening, or concerning symptoms. Prescriptions: Ondansetron [Zofran ODT] 4 mg PO Q8HR PRN #10 tab PRN Reason: Nausea Is patient prescribed a controlled substance at d/c from ED?: No Referrals: [facility],Clinic [Primary Care Provider] - 1-2 days Time of Disposition: 21:16
[2018-10-16 20:17] LABS: ALT 37 U/L (9-52); AST 24 U/L (14-36); Albumin 4.2 g/dL (3.5-5.0); Alkaline Phosphatase 51 U/L (38-126); Amylase 49 U/L (30-110); Anion Gap 8 mmol/L; Blood Urea Nitrogen 14 mg/dL (7-17); Calcium 8.8 mg/dL (8.4-10.2); Carbon Dioxide 28 mmol/L (22-30); Chloride 103 mmol/L (98-107); Glucose 104 mg/dL (74-99); Lipase 63 U/L (23-300); Potassium 2.9 mmol/L (3.5-5.1); Sodium 139 mmol/L (137-145); Total Bilirubin 0.3 mg/dL (0.2-1.3); Total Protein 7.3 g/dL (6.3-8.2)
[2018-10-16 20:21] LABS: Basophils % (A) 0 %; Eosinophils # (A) 0.2 k/uL (0-0.7); Eosinophils % (A) 2 %; HCT 39.3 % (34.0-46.0); HGB 13.1 gm/dL (11.4-16.0); Lymphocytes # (A) 2.2 k/uL (1.0-4.8); Lymphocytes % (A) 20 %; MCH 30.8 pg (25.0-35.0); MCHC 33.3 g/dL (31.0-37.0); MCV 92.6 fL (80.0-100.0); Mean Platelet Volume 6.4; Monocytes # (A) 0.6 k/uL (0-1.0); Monocytes % (A) 5 %; Neutrophils # (A) 8.1 k/uL (1.3-7.7); Neutrophils % (A) 73 %; Platelet Count 292 k/uL (150-450); RBC 4.25 m/uL (3.80-5.40); RDW 12.4 % (11.5-15.5); WBC 11.1 k/uL (3.8-10.6)
--- NOTE | 2018-10-16 20:40 | XR ---
EXAMINATION TYPE: XR KUB DATE OF EXAM: 10/16/2018 8:03 PM CLINICAL HISTORY: Abdominal surgery 2 weeks ago with pain and constipation TECHNIQUE: Two Upright KUB images of the abdomen are obtained. COMPARISON: CT chest abdomen and pelvis December 09, 2015. FINDINGS: Scattered gas is seen in non-distended stomach and small bowel loops. Gas and fecal materia l is seen in non-distended colon. There is no visceromegaly, pneumoperitoneum, or abnormal calcificat ion appreciated. The lung bases are clear and the osseous structures are intact. IMPRESSION: Overall nonobstructive bowel gas pattern.
[2018-10-16 20:55] LABS: Appearance,Urine Clear (Clear); Bilirubin,Urine Negative (Negative); Blood,Urine Small (Negative); Color,Urine Yellow; Glucose,Urine (UA) Negative (Negative); Ketones,Urine Negative (Negative); Leukocyte Esterase,Urine Negative (Negative); Mucus,Urine Rare /hpf; Nitrite,Urine Negative (Negative); Protein,Urine Negative (Negative); RBC,Urine 6 /hpf (0-5); Specific Gravity,Urine 1.017 (1.001-1.035); Squamous Epithelial Cell,Urine <1 /hpf (0-4); Urobilinogen,Urine <2.0 mg/dL (<2.0); WBC,Urine 1 /hpf (0-5)
[2018-10-16] MEDS ORDERED: POTASSIUM CHLORIDE ER 20 MEQ TAB.ER PO STA (20:58)
[2018-10-16 21:49] VITALS: BP 119/78; PULSE 90
== END 2018-10-16 21:45 | disposition home or self-care (01) ==
LOC: EC 18:40
DX: K52.9 Noninfective gastroenteritis and colitis, unspecified (principal); E87.6 Hypokalemia; R55 Syncope and collapse; F17.200 Nicotine dependence, unspecified, uncomplicated; Z79.1 Long term (current) use of non-steroidal anti-inflammatories (NSAID); Z79.899 Other long term (current) drug therapy; Z88.8 Allergy status to other drugs, medicaments and biological substances; Z90.49 Acquired absence of other specified parts of digestive tract
CPT/HCPCS: 36415; 80053; 82150; 83690; 85025; 81001; 74018; 99284; 96374; 96361; 96372; J0500; J2405

== ENCOUNTER 2019-04-30 03:17 | Emergency (ER) | payer OTHER ==
[2019-04-30] MEDS ORDERED: ONDANSETRON 4 MG/2 ML VIAL IVP STA (03:45)
[2019-04-30] MEDS ORDERED: SODIUM CHLORIDE 0.9% 1,000 ML IV STA (03:45)
[2019-04-30] MEDS ORDERED: METOCLOPRAMIDE 5 MG/ML 2 ML VIAL IVP STA (03:58)
[2019-04-30] MEDS ORDERED: SODIUM CHLORIDE 0.9% 1,000 ML IV ONE (03:58)
[2019-04-30] MEDS ORDERED: KETOROLAC 30 MG/ML 1 ML VIAL IVP STA (03:58)
[2019-04-30 04:27] LABS: Basophils # (A) 0.1 k/uL (0-0.2); Basophils % (A) 1 %; Eosinophils # (A) 0.3 k/uL (0-0.7); Eosinophils % (A) 3 %; HCT 40.5 % (34.0-46.0); HGB 14.2 gm/dL (11.4-16.0); Lymphocytes # (A) 3.1 k/uL (1.0-4.8); Lymphocytes % (A) 28 %; MCH 32.3 pg (25.0-35.0); MCV 92.2 fL (80.0-100.0); Mean Platelet Volume 6.6; Monocytes # (A) 0.6 k/uL (0-1.0); Monocytes % (A) 5 %; Neutrophils # (A) 6.7 k/uL (1.3-7.7); Neutrophils % (A) 61 %; Platelet Count 243 k/uL (150-450); RBC 4.39 m/uL (3.80-5.40); RDW 12.7 % (11.5-15.5); WBC 10.9 k/uL (3.8-10.6)
[2019-04-30 04:36] LABS: ALT 25 U/L (9-52); AST 23 U/L (14-36); African American GFR (CKD) >90 (>60 ml/min/1.73 sqM); Albumin 4.2 g/dL (3.5-5.0); Alkaline Phosphatase 47 U/L (38-126); Amylase 50 U/L (30-110); Anion Gap 9 mmol/L; Blood Urea Nitrogen 13 mg/dL (7-17); Carbon Dioxide 31 mmol/L (22-30); Chloride 99 mmol/L (98-107); Glucose 95 mg/dL (74-99); Lipase 48 U/L (23-300); Potassium 2.8 mmol/L (3.5-5.1); Sodium 139 mmol/L (137-145); Total Bilirubin 0.3 mg/dL (0.2-1.3); Total Protein 7.3 g/dL (6.3-8.2)
[2019-04-30] MEDS ORDERED: POTASSIUM BICARBONATE/CIT AC 20 MEQ TABLET.EFF PO ONE (05:24)
--- NOTE | 2019-04-30 05:46 | ED ---
Nausea/Vomiting/Diarrhea HPI - General Chief complaint: Nausea/Vomiting/Diarrhea Stated complaint: Heart Palpitations Time Seen by Provider: 04/30/19 03:45 Source: patient Mode of arrival: ambulatory Limitations: no limitations - History of Present Illness Initial comments: This patient is a 34-year-old woman who presents with complaint that she is conc erned about her potassium going low. She has history of low potassium and usually takes supplementation. She states she has had a number of episodes of vomiting and had been able take her medication. Patient denies other complaints. MD complaint: nausea, vomiting -: hour(s) Description of Vomiting: food contents, watery Associated Abdominal Pain: No Radiation: none Consistency: constant Improves with: none Worsens with: none - Related Data Home Medications Medication Instructions Recorded Confirmed Magnesium Oxide [Mag-Ox] 1,200 meq PO BID 11/14/15 11/03/18 FLUoxetine HCL [PROzac] 20 mg PO DAILY 11/03/18 11/03/18 Potassium Chloride [Klor-Con 20] 60 meq PO BID 11/04/18 11/04/18 Allergies Allergy/AdvReac Type Severity Reaction Status Date / Time diphenhydramine HCl Allergy Rash/Hives Verified 04/30/19 03:23 [From Benadryl] Review of Systems ROS Statement: Those systems with pertinent positive or pertinent negative responses have been documented in the HPI. ROS Other: All systems not noted in ROS Statement are negative. Constitutional: Denies: fever, chills Respiratory: Denies: cough, dyspnea Cardiovascular: Denies: chest pain, palpitations, syncope Gastrointestinal: Reports: nausea, vomiting. 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, History of Any Multi-Drug Resistant Organisms: None Reported Past Surgical History: Appendectomy, Section, Orthopedic Surgery, Tonsillectomy, Tubal Ligation Additional Past Surgical History / Comment(s): Liposuction 2015, [place] teeth, abdominoplasty-09/08/18, bilat knee scopes x 2, Past Anesthesia/Blood Transfusion Reactions: No Reported Reaction Past Psychological History: Anxiety, Depression, PTSD Smoking Status: Current every day smoker Past Alcohol Use History: Rare Past Drug Use History: None Reported - Past Family History Mother Family Medical History: Fibromyalgia Additional Family Medical History / Comment(s): Fibromyalgia diagnosed in 2006 General Exam Limitations: no limitations General appearance: alert, in no apparent distress Head exam: Present: atraumatic, normocephalic Eye exam: Present: normal appearance. Absent: scleral icterus, conjunctival inj ection ENT exam: Present: mucous membranes dry Neck exam: Present: normal inspection Respiratory exam: Present: normal lung sounds bilaterally. Absent: respiratory distress, wheezes, rales, rhonchi, stridor Cardiovascular Exam: Present: regular rate, normal rhythm, normal heart sounds. Absent: systolic murmur, diastolic murmur, rubs, gallop GI/Abdominal exam: Present: soft. Absent: distended, tenderness, guarding, rebound, rigid, mass Extremities exam: Present: normal inspection, normal capillary refill Back exam: Present: normal inspection Neurological exam: Present: alert Skin exam: Present: warm, dry, intact, normal color. Absent: rash Course Vital Signs 04/30/19 04/30/19 03:20 06:08 Temperature 98.0 F 97.7 F Pulse Rate 80 73 Respiratory 17 18 Rate Blood Pressure 103/72 110/74 O2 Sat by Pulse 98 98 Oximetry Medical Decision Making - Medical Decision Making The patient's nausea and vomiting is controlled and then she is given potassium supplement. She does feel moderately better. Discussed appropriate further care and follow-up and she will reserve her usual potassium dosing. - Lab Data Result diagrams: 04/30/19 03:50 04/30/19 03:50 Lab Results 04/30/19 04/30/19 Range/Units 03:50 03:50 WBC 10.9 H (3.8-10.6) k/uL RBC 4.39 (3.80-5.40) m/uL Hgb 14.2 (11.4-16.0) gm/dL Hct 40.5 (34.0-46.0) % MCV 92.2 (80.0-100.0) fL MCH 32.3 (25.0-35.0) pg MCHC 35.0 (31.0-37.0) g/dL RDW 12.7 (11.5-15.5) % Plt Count 243 (150-450) k/uL Neutrophils % 61 % Lymphocytes % 28 % Monocytes % 5 % Eosinophils % 3 % Basophils % 1 % Neutrophils # 6.7 (1.3-7.7) k/uL Lymphocytes # 3.1 (1.0-4.8) k/uL Monocytes # 0.6 (0-1.0) k/uL Eosinophils # 0.3 (0-0.7) k/uL Basophils # 0.1 (0-0.2) k/uL Sodium 139 (137-145) mmol/L Potassium 2.8 L (3.5-5.1) mmol/L Chloride 99 (98-107) mmol/L Carbon Dioxide 31 H (22-30) mmol/L Anion Gap 9 mmol/L BUN 13 (7-17) mg/dL Creatinine 0.66 (0.52-1.04) mg/dL Est GFR (CKD-EPI)AfAm >90 (>60 ml/min/1.73 sqM) Est GFR (CKD-EPI)NonAf >90 (>60 ml/min/1.73 sqM) Glucose 95 (74-99) mg/dL Calcium 9.0 (8.4-10.2) mg/dL Total Bilirubin 0.3 (0.2-1.3) mg/dL AST 23 (14-36) U/L ALT 25 (9-52) U/L Alkaline Phosphatase 47 (38-126) U/L Total Protein 7.3 (6.3-8.2) g/dL Albumin 4.2 (3.5-5.0) g/dL Amylase 50 (30-110) U/L Lipase 48 (23-300) U/L Disposition Clinical Impression: Hypokalemia, Headache Disposition: HOME SELF-CARE Condition: Good Instructions (If sedation given, give patient instructions): Hypokalemia (ED), Acute Headache (ED) Is patient prescribed a controlled substance at d/c from ED?: No Referrals: [facility],Clinic [Primary Care Provider] - 1-2 days
[2019-04-30 06:09] VITALS: BP 110/74; PULSE 73; RESP 18; TEMP 97.7
--- NOTE | 2019-05-02 06:05 | CDI ---
Dear Remington Colón MD: Please do addendum History of Present Illness and Physical Exam. Thank You, Alex Harkins, [employer]. If you have any questions, please contact Regulatory Compliance Manager at [phone]. KOMALD
== END 2019-04-30 06:09 | disposition home or self-care (01) ==
LOC: EC 03:17
DX: E87.6 Hypokalemia (principal); R51 Headache; R11.2 Nausea with vomiting, unspecified; F32.9 Major depressive disorder, single episode, unspecified; F41.9 Anxiety disorder, unspecified; F17.200 Nicotine dependence, unspecified, uncomplicated; Z88.8 Allergy status to other drugs, medicaments and biological substances; Z79.899 Other long term (current) drug therapy; Z87.898 Personal history of other specified conditions; Z90.49 Acquired absence of other specified parts of digestive tract
CPT/HCPCS: 36415; 93005; 80053; 82150; 83690; 85025; 99284; 96374; 96375 ×2; 96361; J2765; J2405; J1885

== ENCOUNTER 2019-10-05 10:36 | Day surgery (SDC) | payer OTHER ==
[2019-10-03 12:46] VITALS: BMI 28.3
[~2019-10-05 10:36] MED LIST: LACTATED RINGERS 1,000 ML IV SCH
[2019-10-05 11:07] VITALS: RESP 18; TEMP 97.9
[2019-10-05] MEDS ORDERED: PROPOFOL 10 MG/ML 20 ML VIAL IV ONE (12:15)
--- NOTE | 2019-10-05 12:28 | P.PCN ---
Date of Procedure: 10/05/19 Procedure(s) Performed: BRIEF HISTORY: Patient is a 34-year-old pleasant WF scheduled for an elective colonoscopy as a part of change in bowel habits the last few years duration. She has alternating diarrhea and constipation with occasional left lower quadrant abdominal pain. Denies any rectal bleeding. PROCEDURE PERFORMED: Colonoscopy. PREOPERATIVE DIAGNOSIS: Change in bowel habits. IV sedation per Anesthesia. PROCEDURE: After informed consent was obtained, the patient, was brought into the endoscopy unit. IV sedation was administered by Anesthesia under continuous monitoring. Digital rectal examination was normal. Initially the Olympus CF-160 flexible video colonoscope was then inserted in the rectum, gradually advanced into the cecum without any difficulty. Careful examination was performed as the scope was gradually being withdrawn. Ileocecal valve and the appendiceal orifice were visualized and appeared normal. Prep was excellent. Mucosa of the cecum, ascending colon, transverse colon, descending colon, sigmoid colon, and rectum appeared normal. Retroflexion was performed in the rectum and no lesions were seen. The patient tolerated the procedure well. IMPRESSION: Normal-appearing colon from rectum to cecum with no evidence of colorectal neoplasia. RECOMMENDATIONS: Findings of this examination were discussed with the patient as well as a family. She was advised to have a repeat screening colonoscopy at age 52..
[2019-10-05 12:50] VITALS: BP 100/78; PULSE 77
== END 2019-10-05 13:04 | disposition home or self-care (01) ==
LOC: ORWHC2ENDO 10:36
PROVIDERS: ATTEND Internal Medicine Gastroenterology
DX: K59.00 Constipation, unspecified (principal); R19.7 Diarrhea, unspecified; R10.32 Left lower quadrant pain; F32.9 Major depressive disorder, single episode, unspecified; Z88.8 Allergy status to other drugs, medicaments and biological substances; Z79.899 Other long term (current) drug therapy
CPT/HCPCS: 81025; 84132; 45378; J2704

== ENCOUNTER 2023-12-18 10:13 | Emergency (ER) | payer OTHER ==
--- NOTE | 2023-12-18 11:18 | ED ---
General Adult HPI - General Chief complaint: Abdominal Pain Stated complaint: back spasms Time Seen by Provider: 12/18/23 11:04 Source: patient, RN notes reviewed Mode of arrival: ambulatory Limitations: no limitations - History of Present Illness Initial comments: 38-year-old female presents to the emergency department for evaluation of right- sided back spasms. She states that this started last night. She states that she has not been able to sleep well because of this. Denies any known triggers. 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 She denies any recent fever, chills, nausea, vomiting. She denies any abdominal pain chest pain, shortness of breath. - Related Data Home Medications Medication Instructions Recorded Confirmed Magnesium Oxide [Mag-Ox] 5 - 8 tab PO QAM 11/14/15 10/03/19 FLUoxetine HCL [PROzac] 20 mg PO DAILY 11/03/18 10/03/19 Potassium Chloride [Klor-Con 20] 80 meq PO BID 11/04/18 10/03/19 Cannabidiol (Cbd) [Epidiolex] 0 mg PO DIRECTED 10/03/19 10/03/19 Previous Rx's Medication Instructions Recorded Cyclobenzaprine [Flexeril] 10 mg PO TID #10 tab 12/18/23 Allergies Allergy/AdvReac Type Severity Reaction Status Date / Time diphenhydramine HCl Allergy Rash/Hives Verified 12/18/23 10:22 [From Benadryl] Review of Systems ROS Statement: Those systems with pertinent positive or pertinent negative responses have been documented in the HPI. ROS Other: All systems not noted in ROS Statement are negative. Past Medical History Past Medical History: GERD/Reflux, Skin Disorder Additional Past Medical History / Comment(s): Gitelman's Syndrome-body does not absorb potassium or magnesium, migraines, low blood pressure, palpitations when K or Magnesium is low. irregular bowel movements, bloody in stools, psoriasis, hx kidney stones, UTI's History of Any Multi-Drug Resistant Organisms: None Reported Past Surgical History: Appendectomy, Section, Orthopedic Surgery, Tons illectomy, Tubal Ligation Additional Past Surgical History / Comment(s): Liposuction, [place] teeth, abdominoplasty-09/08/18, bilat knee arthroscopy (2 each knee) Past Anesthesia/Blood Transfusion Reactions: Previous Problems w/ Anesthesia, Motion Sickness, Postoperative Nausea & Vomiting (PONV) Additional Past Anesthesia/Blood Transfusion Reaction / Comment(s): gets cold and shaky when coming out anesthesia Past Psychological History: Anxiety, Depression, PTSD Smoking Status: Current every day smoker Past Alcohol Use History: Occasional Past Drug Use History: Marijuana - Past Family History Father Family Medical History: Cancer Mother Additional Family Medical History / Comment(s): Fibromyalgia diagnosed in 2006 General Exam Limitations: no limitations General appearance: alert, in no apparent distress Head exam: Present: atraumatic, normocephalic, normal inspection Eye exam: Present: normal appearance, PERRL, EOMI. Absent: scleral icterus, conjunctival injection, periorbital swelling ENT exam: Present: normal exam, mucous membranes moist Neck exam: Present: normal inspection. Absent: tenderness, meningismus, lymphadenopathy Respiratory exam: Present: normal lung sounds bilaterally. Absent: respiratory distress, wheezes, rales, rhonchi, stridor Cardiovascular Exam: Present: regular rate, normal rhythm, normal heart sounds. Absent: systolic murmur, diastolic murmur, rubs, gallop, clicks GI/Abdominal exam: Present: soft, normal bowel sounds. Absent: distended, tenderness, guarding, rebound, rigid Extremities exam: Present: normal inspection, full ROM, normal capillary refill. Absent: tenderness, pedal edema, joint swelling, calf tenderness Back exam: Present: muscle spasm Neurological exam: Present: alert, oriented X3, CN II-XII intact Psychiatric exam: Present: normal affect, normal mood Skin exam: Present: warm, dry, intact, normal color. Absent: rash Course Vital Signs 12/18/23 12/18/23 10:20 13:18 Temperature 98.5 F 98.9 F Pulse Rate 79 77 Respiratory 20 16 Rate Blood Pressure 108/74 110/76 O2 Sat by Pulse 99 98 Oximetry Medical Decision Making - Medical Decision Making Was pt. sent in by a medical professional or institution (, PA, LEAD TINNER, urgent care, hospital, or penitentiary...) When possible be specific @ -No Did you speak to anyone other than the patient for history (EMS, parent, family, police, friend...)? What history was obtained from this source @ -No Did you review nursing and triage notes (agree or disagree)? Why? @ -I reviewed and agree with nursing and triage notes Were old charts reviewed (outside hosp., previous admission, EMS record, old EKG, old radiological studies, urgent care reports/EKG's, penitentiary records)? Report findings @ -No old charts were reviewed Differential Diagnosis (chest pain, altered mental status, abdominal pain women, abdominal pain men, vaginal bleeding, weakness, fever, dyspnea, syncope, headache, dizziness, GI bleed, back pain, seizure, CVA, palpatations, mental health, musculoskeletal)? @ -Differential Back Pain: Strain, zoster, cauda equina syndrome, epidural abscess, vertebral osteomyelitis, discitis, fracture, subluxation, disc herniation, DJD, spinal stenosis, dissection, AAA, pancreatitis, peptic ulcer disease, pyelonephritis, kidney stone, this is not meant to be an all-inclusive list. EKG interpreted by me (3pts min.). @ -None X-rays interpreted by me (1pt min.). @ -Chest x-ray shows no acute process CT interpreted by me (1pt min.). @ -None done U/S interpreted by me (1pt. min.). @ -None done What testing was considered but not performed or refused? (CT, X-rays, U/S, labs)? Why? @ -None What meds were considered but not given or refused? Why? @ -None Did you discuss the management of the patient with other professionals (professionals i.e. , PA, LEAD TINNER, lab, RT, psych nurse, rn social services, abrasive grinder, teacher, amphibious operations officer, family service caseworker)? Give summary @ -No Was smoking cessation discussed for >3mins.? @ -No Was critical care preformed (if so, how long)? @ -No Were there social determinants of health that impacted care today? How? (Homelessness, low income, unemployed, alcoholism, drug addiction, tra nsportation, low edu. Level, literacy, decrease access to med. care, nursing home, rehab)? @ -No Was there de-escalation of care discussed even if they declined (Discuss DNR or withdrawal of care, Hospice)? DNR status @ -No What co-morbidities impacted this encounter? (DM, HTN, Smoking, COPD, CAD, Cancer, CVA, ARF, Chemo, Hep., AIDS, mental health diagnosis, sleep apnea, morbid obesity)? @ -None Was patient admitted / discharged? Hospital course, mention meds given and route, prescriptions, significant lab abnormalities, going to OR and other pertinent info. @ -Discharge. Laboratory studies obtained. Significant for leukocytosis of 17.1 with unknown source of infection, hemoglobin 16.6 blood likely hemoconcentrated. CMP shows sodium 141 potassium 3.5, magnesium 1.7; UA shows trace protein, no evidence of infection. Chest x-ray obtained shows no acute infiltrate or cardiopulmonary process. Patient given morphine relaxers and a dose of Toradol. On reevaluation, patient is feeling much better. Patient given muscle relaxers for at home. Advised not to drive or operate heavy machinery while taking medication. Patient understanding agreeable discharge plan. Patient stable at time of discharge. Case discussed with Dr. Pressley. Undiagnosed new problem with uncertain prognosis? @ -No Drug Therapy requiring intensive monitoring for toxicity (Heparin, Nitro, Insulin, Cardizem)? @ -No Were any procedures done? @ -No Diagnosis/symptom? @ -Muscle spasm Acute, or Chronic, or Acute on Chronic? @ -Acute Uncomplicated (without systemic symptoms) or Complicated (systemic symptoms)? @ -Uncomplicated] Side effects of treatment? @ -No Exacerbation, Progression, or Severe Exacerbation? @ -No Poses a threat to life or bodily function? How? (Chest pain, [place], [place], pneumonia, PE, COPD, DKA, ARF, appy, cholecystitis, CVA, Diverticulitis, Homicidal, Suicidal, threat to staff... and all critical care pts) @ -No - Lab Data Result diagrams: 12/18/23 11:42 12/18/23 11:42 Lab Results 12/18/23 12/18/23 12/18/23 Range/Units 11:42 11:42 11:42 WBC 17.1 H (3.8-10.6) k/uL RBC 4.95 (3.80-5.40) m/uL Hgb 16.6 H (11.4-16.0) gm/dL Hct 46.7 H (34.0-46.0) % MCV 94.5 (80.0-100.0) fL MCH 33.6 (25.0-35.0) pg MCHC 35.5 (31.0-37.0) g/dL RDW 12.4 (11.5-15.5) % Plt Count 306 (150-450) k/uL MPV 7.8 Neutrophils % 81 % Lymphocytes % 13 % Monocytes % 5 % Eosinophils % 0 % Basophils % 0 % Neutrophils # 13.8 H (1.3-7.7) k/uL Lymphocytes # 2.2 (1.0-4.8) k/uL Monocytes # 0.8 (0-1.0) k/uL Eosinophils # 0.1 (0-0.7) k/uL Basophils # 0.1 (0-0.2) k/uL Sodium 141 (137-145) mmol/L Potassium 3.5 (3.5-5.1) mmol/L Chloride 103 (98-107) mmol/L Carbon Dioxide 24 (22-30) mmol/L Anion Gap 14 mmol/L BUN 22 H (7-17) mg/dL Creatinine 0.75 (0.52-1.04) mg/dL Est GFR (CKD-EPI)AfAm >90 (>60 ml/min/1.73 sqM) Est GFR (CKD-EPI)NonAf >90 (>60 ml/min/1.73 sqM) Glucose 102 H (74-99) mg/dL Calcium 10.4 H (8.4-10.2) mg/dL Magnesium 1.7 (1.6-2.3) mg/dL Total Bilirubin 1.0 (0.2-1.3) mg/dL AST 26 (14-36) U/L ALT 22 (4-34) U/L Alkaline Phosphatase 68 (38-126) U/L Total Protein 8.8 H (6.3-8.2) g/dL Albumin 5.2 H (3.5-5.0) g/dL Urine Color Light Yellow Urine Appearance Clear (Clear) Urine pH 6.5 (5.0-8.0) Ur Specific Eidson 1.023 (1.001-1.035) Urine Protein Trace H (Negative) Urine Glucose (UA) Negative (Negative) Urine Ketones Negative (Negative) Urine Blood Negative (Negative) Urine Nitrite Negative (Negative) Urine Bilirubin Negative (Negative) Urine Urobilinogen <2.0 (<2.0) mg/dL Ur Leukocyte Esterase Negative (Negative) Disposition Clinical Impression: Muscle spasm of back Disposition: HOME SELF-CARE Condition: Stable Instructions (If sedation given, give patient instructions): Muscle Spasm (ED) Additional Instructions: Please do not drive or operate heavy machinery while taking muscle relaxers. Return to the emergency department for new or worsening symptoms as we discussed. Follow-up with your primary care provider. Prescriptions: Cyclobenzaprine [Flexeril] 10 mg PO TID #10 tab Is patient prescribed a controlled substance at d/c from ED?: No Referrals: [facility],Clinic [Primary Care Provider] - 1-2 days
[2023-12-18] MEDS: KETOROLAC 15 MG/ML 1 ML VIAL IVP STA (11:33)
[2023-12-18] MEDS: ORPHENADRINE 30 MG/ML 2 ML VIAL IVP STA (11:34)
[2023-12-18] MEDS: methylPREDNISolone SOD SUCCI 125 MG/2 ML VIAL IV STA (11:34)
--- NOTE | 2023-12-18 11:59 | XR ---
EXAMINATION TYPE: XR chest 2V DATE OF EXAM: 12/18/2023 COMPARISON: Chest x-ray March 15, 2016 HISTORY: Cough TECHNIQUE: Frontal and lateral views of the chest are obtained. FINDINGS: There is no suspicious focal air space opacity, pleural effusion, or pneumothorax seen. T he cardiac silhouette size is stable and within normal limits. The osseous structures are intact. IMPRESSION: No acute pulmonary infiltrate.
[2023-12-18 12:10] LABS: Basophils # (A) 0.1 k/uL (0-0.2); Basophils % (A) 0 %; Eosinophils # (A) 0.1 k/uL (0-0.7); Eosinophils % (A) 0 %; HCT 46.7 % (34.0-46.0); HGB 16.6 gm/dL (11.4-16.0); Lymphocytes # (A) 2.2 k/uL (1.0-4.8); Lymphocytes % (A) 13 %; MCH 33.6 pg (25.0-35.0); MCHC 35.5 g/dL (31.0-37.0); MCV 94.5 fL (80.0-100.0); Mean Platelet Volume 7.8; Monocytes # (A) 0.8 k/uL (0-1.0); Monocytes % (A) 5 %; Neutrophils # (A) 13.8 k/uL (1.3-7.7); Neutrophils % (A) 81 %; Platelet Count 306 k/uL (150-450); RBC 4.95 m/uL (3.80-5.40); RDW 12.4 % (11.5-15.5); WBC 17.1 k/uL (3.8-10.6)
[2023-12-18 12:21] LABS: ALT 22 U/L (4-34); AST 26 U/L (14-36); African American GFR (CKD) >90 (>60 ml/min/1.73 sqM); Albumin 5.2 g/dL (3.5-5.0); Alkaline Phosphatase 68 U/L (38-126); Anion Gap 14 mmol/L; Appearance,Urine Clear (Clear); Bilirubin,Urine Negative (Negative); Blood Urea Nitrogen 22 mg/dL (7-17); Blood,Urine Negative (Negative); Calcium 10.4 mg/dL (8.4-10.2); Carbon Dioxide 24 mmol/L (22-30); Chloride 103 mmol/L (98-107); Color,Urine Light Yellow; Glucose 102 mg/dL (74-99); Glucose,Urine (UA) Negative (Negative); Ketones,Urine Negative (Negative); Leukocyte Esterase,Urine Negative (Negative); Magnesium 1.7 mg/dL (1.6-2.3); Nitrite,Urine Negative (Negative); Non-African American GFR(CKD) >90 (>60 ml/min/1.73 sqM); PH, Urine 6.5 (5.0-8.0); Potassium 3.5 mmol/L (3.5-5.1); Protein,Urine Trace (Negative); Sodium 141 mmol/L (137-145); Specific Gravity,Urine 1.023 (1.001-1.035); Total Protein 8.8 g/dL (6.3-8.2); Urobilinogen,Urine <2.0 mg/dL (<2.0)
[2023-12-18 13:21] VITALS: BP 110/76; PULSE 77; RESP 16; TEMP 98.9
[2023-12-18] MEDS: CYCLOBENZAPRINE 10MG STARTER 3 TAB BTL PO STA (13:21)
== END 2023-12-18 13:27 | disposition home or self-care (01) ==
LOC: EC 10:13
DX: M62.830 Muscle spasm of back (principal); F41.9 Anxiety disorder, unspecified; F32.A Depression, unspecified; F17.200 Nicotine dependence, unspecified, uncomplicated; F12.90 Cannabis use, unspecified, uncomplicated; Z79.899 Other long term (current) drug therapy; Z88.8 Allergy status to other drugs, medicaments and biological substances
CPT/HCPCS: 36415; 80053; 83735; 85025; 81003; 71046; 99284; 96374; 96375 ×2; J2360; J2930; J1885

== ENCOUNTER → 2024-01-11 | Outpatient (CLI) | payer OTHER ==
--- NOTE | 2024-01-11 12:31 | MM ---
Reason for Exam: Screening (asymptomatic). Baseline mammogram. Patient History: Menarche at age 17. First Full-Term at age 30. Maternal grandmother had breast cancer. Sister had breast cancer, age 20. Last menstrual period: 01/04/2024 Risk Values: Stephany 5 year model risk: 0.7%. NCI Lifetime model risk: 17.5%. Prior Study Comparison: Patient's first Mammogram. Tissue Density: The breasts are heterogeneously dense, which may obscure small masses. Findings: Analyzed By CAD. There is no suspicious group of microcalcifications or new suspicious mass. Benign-appearing calcifications bilaterally. Overall Assessment: Benign, BI-RAD 2 Management: Screening Mammogram of both breasts in [address] [facility] will attempt to contact patient to return for supplemental views and ultrasound if indicated. Patient should continue monthly self-breast exams. A clinical breast exam by your physician is recommended on an annual basis. This exam should not preclude additional follow-up of suspicious palpable abnormalities. Note on Stephany scores and lifetime risk: 1. A Stephany score greater than 3% is considered moderate risk. If this is the case, consider specialist referral to assess eligibility for a risk reducing agent. 2. If overall lifetime risk for the development of breast cancer is 20% or higher, the patient may qualify for future screening with alternating mammogram and breast MRI. Electronically signed and approved by: Han Maddox DO
== END | disposition home or self-care (01) ==
LOC: RADMAMWWP 10:11
PROVIDERS: ATTEND Family Medicine
DX: Z12.31 Encounter for screening mammogram for malignant neoplasm of breast (principal); Z80.3 Family history of malignant neoplasm of breast
CPT/HCPCS: 77067

== ENCOUNTER → 2024-03-23 | Outpatient (CLI) | payer OTHER ==
[2024-03-23 12:12] VITALS: BP 112/79; PULSE 71; RESP 16
--- NOTE | 2024-03-23 14:49 | P.PAINPG ---
PQRS Measure Charge Sheet Comment: HISTORY OF PRESENT ILLNESS: A 39 yr old female as a referral from the [facility] presents today w severe and chronic neck pain > 6 mo secondary to DDD, spondylosis and facet arthropathy without myelopathy for evaluation. Pt states pain level is provoked at 10 /10 in intensity, constant, localized in the lower cervical spine, predominantly axial, stabbing in character w occasional shooting pain towards the BL shoulders. Pain is provoked by head movements. Pain is alleviated by chiropractic treatments se mi monthly w last visit in Dec 2023, physician guided home exercises/ stretches 5 times weekly since Dec 2023. heat, ice, medications (Tyl, Ibu), repositioning and rest . Oswestry axial pain score at 25. PMH: OA, GERD, Skin Disorder, Gitelman's Syndrome, Migraine STOKES, Nephrolithiasis, MDD/ Anxiety/ PTSD PSH: Colonoscopy (2016), Appendectomy, Section, BL Knee Arthroscopy x2, Tonsillectomy, Tubal Ligation, Liposuction, Abdominoplasty (2017), [place] Teeth Extraction, SH: Daily tobacco use ,Occasional ETOH use, Cannabis use FH: Fa- CA. Mo- Fibromyalgia (2006) All: See list Meds: See list REVIEW OF ORGAN SYSTEMS: CONSTITUTIONAL: No fevers or chills. No recent weight loss. NEUROLOGICAL: + numbness and tingling along the distal extremities. No seizure disorders or headaches. MUSCULOSKELETAL: + pain PSYCHIATRIC: Denies current depression or suicidal thoughts. Physical Examinations : Constitutional : Cooperative , not in acute distress . Neurologic : Cranial nerve II to XII intact. No focal neurological deficits. Psychiatric : alert & oriented x 3. Matching mood & appropriate affect. Judgment & insight intact. Musculoskeletal : Cervical Spine Motor strength in the deltoid and biceps: Normal right side. Normal Left side Motor strength biceps and the wrist extensors: Normal right side . Normal left side Motor strength in the triceps muscle: Normal right side. Normal left side Deep tendon reflexes: Normal at the biceps. Normal at Brachioradialis. Normal at triceps Vertebral body tenderness to deep palpation over C6 Cervical facet loading test: positive bilaterally Spurling test: positive bilaterally C6- C7 Neck distraction test: positive bilaterally Neal sign: positive bilaterally Lumbar spine Motor strength lower extremities ,thigh and legs 5/5 Right side , 5/5 Left side Deep tendon reflexes : Normal Knee Jerk. Normal Ankle Jerk Vertebral body tenderness over Zavala Test positive Lumbar facet Loading Test: positive R ight / positive Left Range of motion of the lumbar spine Flexion 30 degrees, extension 10 degrees Straight Leg Raise test: Left/ Right positive at degrees Miya test: positive right / positive left. Severe tenderness over the Sacroiliac joint on the Right / Left sides Gaenslen test: positive bilaterally Seated flexion test: positive bilaterally. Sacral spine : Severe tenderness over the Sacroiliac joint: right side / left side Range of motion: Flexion of the lumbar spine <60 degrees Range of motion: Extension of the lumbar spine <20 degrees Gaenslen's Test positive Miya test: positive right side / left side Thigh Thrust Test Sacral Thrust Test Imaging: MRI noncontrast of the cervical spine from 01/21/2024 reviewed Assessment/ Plan : Cervical DDD Recommendation of DAVID C6-C7 #1. May need a series of injections for optimal pain relief. Risks, benefits of procedure discussed and patient verbalized understanding. Admits to anti- coagulant use or medical history of diabetes. Protocol for discontinuation/ continuation of medications oly procedure discussed. Minimal anesthesia provided, if clinically indicated, consisting of Versed and Fentanyl. All questions answered. I have spent greater than 30 minutes on patient care today. Dr Hernandez was available by phone for the evaluation of this patient. The time was used to review the medical records including relevant urine studies and Prescription history (MAPs), review of the available imaging, evaluation and examination of the patient, coordination of care with the medical staff and if applicable referring physicians, as well as creation of the medical record PQRS Narrative: Smoking Status Former smoker Home Medications: Ambulatory Orders Magnesium Oxide [Mag-Ox] 5 - 8 tab PO QAM 11/14/15 FLUoxetine HCL [PROzac] 20 mg PO DAILY 11/03/18 Potassium Chloride [Klor-Con 20] 80 meq PO BID 11/04/18 Cannabidiol (Cbd) [Epidiolex] 0 mg PO DIRECTED 10/03/19 Cyclobenzaprine [Flexeril] 10 mg PO TID #10 tab 12/18/23 Controlled Substance Measures - Controlled Substance Measures Is patient prescribed a controlled substance at discharge?: No
== END ==
LOC: PNWHC3 10:21
PROVIDERS: ATTEND Specialist
DX: M50.323 Other cervical disc degeneration at C6-C7 level (principal); Z87.891 Personal history of nicotine dependence; Z88.8 Allergy status to other drugs, medicaments and biological substances
CPT/HCPCS: 99211

== ENCOUNTER → 2024-05-17 | Outpatient (CLI) | payer OTHER ==
--- NOTE | 2024-05-18 05:19 | MR ---
EXAMINATION TYPE: MR shoulder RT wo con DATE OF EXAM: 05/17/2024 COMPARISON: None. HISTORY: Rt shoulder pain with restricted mobility since April 07, 2024 TECHNIQUE: Multiplanar, multisequence imaging of the right shoulder is performed without contrast. FINDINGS: Rotator Cuff: Intact supraspinatus and infraspinatus tendons. Some heterogeneity in the intact subsca pularis tendon. Rotator cuff muscle bulk is preserved. Acromioclavicular Joint: Mild to moderate capsular hypertrophy. No significant spurring or narrowing. Underlying fat plane is maintained. Glenohumeral Joint: Small joint effusion. No significant spurring. Labrum: The labrum appears grossly intact given limitation of non-arthrogram study. Biceps Tendon: The long head of biceps is in normal location within bicipital groove. Heterogeneous i ncreased signal intracapsular portion near the biceps anchor Bone marrow signal: A few tiny subchondral cysts involving the lateral humeral head. Other: No additional significant abnormality is appreciated. IMPRESSION: 1. Some tendinosis of the subscapularis tendon. No labral tear. 2. Some tendinosis of the long head of biceps tendon.
== END | disposition home or self-care (01) ==
LOC: RADMRIMAIN 10:05
PROVIDERS: ATTEND Family Medicine
DX: M67.813 Other specified disorders of tendon, right shoulder (principal)

== ENCOUNTER → 2024-08-23 | Outpatient (CLI) | payer OTHER ==
--- NOTE | 2024-08-23 09:49 | US ---
EXAMINATION TYPE: US abdomen limited DATE OF EXAM: 08/23/2024 COMPARISON: CT chest abdomen pelvis 12/09/2015, renal ultrasound 03/03/2015 CLINICAL INDICATION: Female, 39 years old with history of R1010 UPPER ABD PAIN; right shoulder pain t hat extends down TECHNIQUE: Grayscale and color Doppler imaging of the right upper quadrant was performed. FINDINGS: EXAM MEASUREMENTS: Liver Length: 15.4 cm Gallbladder Wall: 0.2 cm CBD: 0.3 cm Right Kidney: 11.3 x 5.0 x 4.6 cm Pancreas: Tail obscured by overlying bowel gas Liver: wnl Gallbladder: No stones or wall thickening Evidence for sonographic Benson's sign: neg CBD: wnl Right Kidney: No hydronephrosis or masses seen Visualized portions of the pancreas are unremarkable. Liver is unremarkable without focal lesions. No cholelithiasis, wall thickening or surrounding fluid. Negative sonographic Benson sign. Common bile duct is within normal limits. Right kidney demonstrates no hydronephrosis, shadowing calculi, or francisco j d mass. IMPRESSION: Unremarkable right upper quadrant ultrasound. [facility], , 08/23/2024 9:47 AM
== END | disposition home or self-care (01) ==
LOC: RADUSWWP 08:53
PROVIDERS: ATTEND Family Medicine
DX: R10.10 Upper abdominal pain, unspecified (principal)
CPT/HCPCS: 76705

== ENCOUNTER → 2025-01-12 | Outpatient (CLI) | payer OTHER ==
--- NOTE | 2025-01-12 11:59 | MM ---
Reason for Exam: Screening (asymptomatic). Last screening mammogram was performed 12 month(s) ago. Patient History: Menarche at age 17. First Full-Term at age 30. Maternal grandmother had breast cancer. Sister had breast cancer, age 20. Risk Values: Stephany 5 year model risk: 0.8%. NCI Lifetime model risk: 17.4%. Prior Study Comparison: 01/11/2024 Bilateral MG screening mammo w CAD, [facility]. Tissue Density: The breasts are heterogeneously dense, which may obscure small masses. Findings: Analyzed By CAD. There is no suspicious group of microcalcifications or new suspicious mass in either breast. Overall Assessment: Benign, BI-RAD 2 Management: Screening Mammogram of both breasts in 1 year. . Patient should continue monthly self-breast exams. A clinical breast exam by your physician is recommended on an annual basis. This exam should not preclude additional follow-up of suspicious palpable abnormalities. Note on Stephany scores and lifetime risk: 1. A Stephany score greater than 3% is considered moderate risk. If this is the case, consider specialist referral to assess eligibility for a risk reducing agent. 2. If overall lifetime risk for the development of breast cancer is 20% or higher, the patient may qualify for future screening with alternating mammogram and breast MRI. [facility], , 01/12/2025 11:56 AM. Electronically signed and approved by: Igor Shaffer M.D. Radiologis
== END | disposition home or self-care (01) ==
LOC: RADMAMWWP 10:48
PROVIDERS: ATTEND Family Medicine
DX: Z12.31 Encounter for screening mammogram for malignant neoplasm of breast (principal); R92.333 Mammographic heterogeneous density, bilateral breasts; Z80.3 Family history of malignant neoplasm of breast
CPT/HCPCS: 77063; 77067

== ENCOUNTER → 2025-02-23 | Outpatient (CLI) | payer OTHER ==
--- NOTE | 2025-02-23 10:44 | US ---
EXAMINATION TYPE: US thyroid st tissue head/neck DATE OF EXAM: 02/23/2025 COMPARISON: NONE CLINICAL INDICATION: Female, 40 years old with history of R94.6 Abn Lab test thy functions; Abnormal labs. No thyroid meds TECHNIQUE: Grayscale and color Doppler imaging of the thyroid gland. FINDINGS: GLAND SIZE: Right Lobe: 4.2 x 1.7 x 2.2 cm Overall Parenchyma: heterogeneous Left Lobe: 4.0 x 1.4 x 1.6 cm Overall Parenchyma: heterogeneous Isthmus Thickness: 0.4 cm NODULES RIGHT: # of nodules measured on right: 2 1. 1.1 X 1.0 x 1.0 cm, mid mid, solid or almost completely solid, hyperechoic nodule, which is wide r than tall, with smooth margins, without echogenic foci. Prior size: No prior 2. 1.3 X 1.3 x 1.1 cm, lower mid, solid or almost completely solid, hypoechoic nodule, which is wid er than tall, with smooth margins, without echogenic foci. TR 4 Prior size: No prior LEFT: # of nodules measured on left: 1 1. 1.2 X 1.2 x 1.1 cm, mid mid, mixed cystic and solid, hypoechoic nodule, which is wider than tall , with smooth margins, without echogenic foci. Prior size: No prior ISTHMUS: # of nodules measured in the isthmus: 0 Bilateral neck scanned, no evidence of lymphadenopathy. IMPRESSION: Moderately suspicious nodule posterior mid right lobe thyroid. Follow-up ultrasound in one year is re commended. Highest TI-RADS level nodule reported: 2017 ACR TI-RADS LEVEL: TI-RADS 4 - Moderately Suspicious: Follow if > 1 cm, FNA if > 1.5 cm TI-RADS assessment score and recommendation for follow-up based on appropriate scoring and treatment protocols. TR3: If nodule size is ? 2.5 cm, FNA is recommended. If nodule size is ? 1.5 cm, follow-up imaging at 1, 3, and 5 years is recommended. TR4: If nodule size is ? 1.5 cm, FNA is recommended. If nodule size is ? 1.0 cm, follow-up imaging at 1, 2, 3, and 5 years is recommended. TR5: If nodule size is ? 1.0 cm, FNA is recommended. If nodule size is ? 0.5 cm, annual follow-up for up to 5 years is recommended. [email or web address] [facility], Workstation: [facility], 02/23/2025 10:41 AM
== END | disposition home or self-care (01) ==
LOC: RADUSWWP 12:01
PROVIDERS: ATTEND Family Medicine
DX: R94.6 Abnormal results of thyroid function studies (principal)
CPT/HCPCS: 76536